=== PATIENT | female | born 1970 | race Caucasian/White ===

== ENCOUNTER 2022-11-19 17:48 | Emergency (ER) | payer OTHER ==
--- NOTE | 2022-11-19 19:10 | ER ---
Nurse's Notes [facility] Name: Tj Enriquez Age: 52 yrs Sex: Female : 1970 Arrival Date: 11/19/2022 Time: 17:48 Bed DX3 Private MD: Diagnosis: Pain in left ankle and joints of left foot;Sprain of tibiofibular ligament of left ankle;Sprain of unspecified ligament of left ankle;Sprain of calcaneofibular ligament of left ankle;Obesity, unspecified Presentation: 11/19 18:04 Chief complaint: EMS states: Rolled left ankle when attempting to get out of motorized hb scooter just DIE CUTTER, c/o left ankle pain 02/02. Coronavirus screen: At this time, the client does not indicate any symptoms associated with coronavirus-19. Ebola Screen: No symptoms or risks identified at this time. Initial Sepsis Screen: Does the patient meet any 2 criteria? No. Patient's initial sepsis screen is negative. Does the patient have a suspected source of infection? No. Patient's initial sepsis screen is negative. Risk Assessment: Do you want to hurt yourself or someone else? Patient reports no desire to harm self or others. Onset of symptoms was November 19, 2022. 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 - Social history:: Smoking status: Patient denies any tobacco usage or history of. Screenin:00 [facility] ED Fall Risk Assessment (Adult) History of falling in the last 3 months, pf1 including since admission No falls in past 3 months (0 pts) Confusion or Disorientation No (0 pts) Intoxicated or Sedated No (0 pts) Impaired Gait No (0 pts) Mobility Assist Device Used No (0 pt) Altered Elimination No (0 pt) Score/Fall Risk Level 0 - 2 = Low Risk Oriented to surroundings, Maintained a safe environment, Educated pt \T\ family on fall prevention, incl call for assistance when getting out of bed, Assessed \T\ reinforced patient's understanding of fall precautions, Provided non-skid footwear, Hourly rounding (assess needs \T\ fall precautionary measures) done, Used ambulatory aids as needed (educated on \T\ assisted with), Used gait belt as appropriate. 19:00 Abuse screen: Denies threats or abuse. Nutritional screening: No deficits noted. pf1 Tuberculosis screening: No symptoms or risk factors identified. Assessment: 19:00 General: Appears in no apparent distress. uncomfortable, obese, well groomed, well pf1 developed, Behavior is calm, cooperative, appropriate for age, quiet. 19:00 Pain: Complains of pain in left leg and left fu and left medial ankle and left pf1 lateral ankle and anterior aspect of left ankle Pain currently is 6 out of 10 on a pain scale. Neuro: No deficits noted. Level of Consciousness is awake, alert, obeys commands, Oriented to person, place, time, situation. Cardiovascular: No deficits noted. Respiratory: No deficits noted. Airway is patent Respiratory effort is even, unlabored, Respiratory pattern is regular, symmetrical. GI: No deficits noted. No signs and/or symptoms were reported involving the gastrointestinal system. : No deficits noted. No signs and/or symptoms were reported regarding the genitourinary system. EENT: No deficits noted. No signs and/or symptoms were reported regarding the EENT system. Derm: No deficits noted. No signs and/or symptoms reported regarding the dermatologic system. Musculoskeletal: Reports pain in anterior aspect of left ankle and left fu and left medial ankle and left lateral ankle and left leg Pain is 6 out of 10 on a pain scale. Vital Signs: 18:04 BP 158 / 88; Pulse 88; Resp 16; Temp 98; Pulse Ox 100% on R/A; Weight 117.93 kg; Height hb 5 ft. 4 in. ; Pain 8/10; 18:04 Body Mass Index 44.63 (117.93 kg, 162.56 cm) hb 18:04 Pain Scale: Adult hb Jake Coma Score: 18:17 Eye Response: spontaneous(4). Motor Response: obeys commands(6). Verbal Response: vicenta oriented(5). Total: 15. ED Course: 17:53 Patient arrived in ED. eb 17:53 Fernando Gudino MD is Attending Physician. [facility] 18:03 Melinda Powell, RN is Primary Nurse. hb 18:05 Triage completed. hb 18:10 Arm band placed on. hb 19:00 Patient has correct armband on for positive identification. pf1 19:00 No provider procedures requiring assistance completed. pf1 19:00 Patient did not have IV access during this emergency room visit. pf1 19:04 Tib Fib Left XRAY In Process Unspecified. EDMS 19:05 Ankle Left 3 View XRAY In Process Unspecified. EDMS 19:09 Sanjay Hartman MD is Referral Physician. [facility] 19:25 ortho boot. pf1 Administered Medications: 18:24 Not Given (Patient Refused): [place] PO 10 mg-325 mg 1 tabs PO once hb Medication: 19:00 VIS not applicable for this client. pf1 Outcome: 19:09 Discharge ordered by . [facility] 19:30 Discharged to home via wheelchair, with family. pf1 19:30 Condition: stable 19:30 Discharge instructions given to patient, Instructed on discharge instructions, follow up and referral plans. Demonstrated understanding of instructions, follow-up care. 19:30 Patient left the ED. pf1 Signatures: Dispatcher [employer] Fernando Mckeon MD MD cha Baxter, Heather, RN RN Bibiana Alexander Lidia Isidro, RN RN pf1 Corrections: (The following items were deleted from the chart) 11/20 03:57 11/19 19:42 Patient left the ED. pf1 pf1
--- NOTE | 2022-11-19 19:10 | EDPHYS ---
Physician Documentation [facility] Name: Tj Enriquez Age: 52 yrs Sex: Female : 1970 Arrival Date: 11/19/2022 Time: 17:48 Bed DX3 Private MD: ED Physician Fernando Gudino HPI: 11/19 18:12 This 52 yrs old Female presents to ER via EMS with complaints of Ankle Injury.vicenta 18:12 The patient presents with decreased range of motion, pain, that is acute. The vicenta complaints affect the left ankle, left lateral ankle, left medial ankle, left fu and anterior aspect of left ankle. Onset: The symptoms/episode began/occurred just prior to arrival. Context: resulted from the patient falling, a mis-step by the patient, The mechanism of injury involved inversion of the affected ankle. The patient can fully bear weight on the affected extremity. Associated signs and symptoms: The patient has no apparent associated signs or symptoms. Modifying factors: The symptoms are alleviated by nothing, the symptoms are aggravated by weight bearing, movement. Severity of symptoms: At their worst the symptoms were mild, moderate, in the emergency department the symptoms are unchanged. The patient has not experienced similar symptoms in the past. 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 - Social history:: Smoking status: Patient denies any tobacco usage or history of. ROS: 18:17 Constitutional: Negative for fever, chills, and weight loss, Eyes: Negative for injury, vicenta pain, redness, and discharge, ENT: Negative for injury, pain, and discharge, Neck: Negative for injury, pain, and swelling, Cardiovascular: Negative for chest pain, palpitations, and edema, Respiratory: Negative for shortness of breath, cough, wheezing, and pleuritic chest pain, Abdomen/GI: Negative for abdominal pain, nausea, vomiting, diarrhea, and constipation, Back: Negative for injury and pain, : Negative for injury, bleeding, discharge, and swelling, Skin: Negative for injury, rash, and discoloration, Neuro: Negative for headache, weakness, numbness, tingling, and seizure, Psych: Negative for depression, anxiety, suicide ideation, homicidal ideation, and hallucinations, Allergy/Immunology: Negative for hives, rash, and allergies, Endocrine: Negative for neck swelling, polydipsia, polyuria, polyphagia, and marked weight changes, Hematologic/Lymphatic: Negative for swollen nodes, abnormal bleeding, and unusual bruising. 18:17 MS/extremity: Positive for injury or acute deformity, decreased range of motion, pain, swelling, tenderness, of the left lateral ankle, left medial ankle and anterior aspect of left ankle. Exam: 18:17 Constitutional: This is a well developed, well nourished patient who is awake, alert, vicenta and in no acute distress. Head/Face: Normocephalic, atraumatic. Eyes: Pupils equal round and reactive to light, extra-ocular motions intact. Lids and lashes normal. Conjunctiva and sclera are non-icteric and not injected. Cornea within normal limits. Periorbital areas with no swelling, redness, or edema. ENT: Nares patent. No nasal discharge, no septal abnormalities noted. Tympanic membranes are normal and external auditory canals are clear. Oropharynx with no redness, swelling, or masses, exudates, or evidence of obstruction, uvula midline. Mucous membranes moist. Neck: Trachea midline, no thyromegaly or masses palpated, and no cervical lymphadenopathy. Supple, full range of motion without nuchal rigidity, or vertebral point tenderness. No Meningismus. Chest/axilla: Normal chest wall appearance and motion. Nontender with no deformity. No lesions are appreciated. Cardiovascular: Regular rate and rhythm with a normal S1 and S2. No gallops, murmurs, or rubs. Normal PMI, no JVD. No pulse deficits. Respiratory: Lungs have equal breath sounds bilaterally, clear to auscultation and percussion. No rales, rhonchi or wheezes noted. No increased work of breathing, no retractions or nasal flaring. Abdomen/GI: Soft, non-tender, with normal bowel sounds. No distension or tympany. No guarding or rebound. No evidence of tenderness throughout. Back: No spinal tenderness. No costovertebral tenderness. Full range of motion. Skin: Warm, dry with normal turgor. Normal color with no rashes, no lesions, and no evidence of cellulitis. Neuro: Awake and alert, GCS 15, oriented to person, place, time, and situation. Cranial nerves II-XII grossly intact. Motor strength 5/5 in all extremities. Sensory grossly intact. Cerebellar exam normal. Normal gait. Psych: Awake, alert, with orientation to person, place and time. Behavior, mood, and affect are within normal limits. 18:17 Musculoskeletal/extremity: Extremities: grossly normal except: decreased ROM, pain, swelling, tenderness, ROM: limited active range of motion due to pain, limited passive range of motion due to pain, in the left lateral ankle, left medial ankle and anterior aspect of left ankle, Circulation is intact in all extremities. Sensation intact. Compartment Syndrome exam of affected extremity: is normal. DVT Exam: negative Homans' sign noted on exam, no appreciated bluish discoloration, no erythema, no increased warmth, pain, swelling, tenderness. Vital Signs: 18:04 BP 158 / 88; Pulse 88; Resp 16; Temp 98; Pulse Ox 100% on R/A; Weight 117.93 kg; Height hb 5 ft. 4 in. ; Pain 8/10; 18:04 Body Mass Index 44.63 (117.93 kg, 162.56 cm) hb 18:04 Pain Scale: Adult hb Jake Coma Score: 18:17 Eye Response: spontaneous(4). Motor Response: obeys commands(6). Verbal Response: vicenta oriented(5). Total: 15. MDM: 17:53 Patient medically screened. vicenta 18:19 Differential diagnosis: fracture, sprain, arthritis, gout. Data reviewed: vital signs, vicenta nurses notes, radiologic studies, plain films. Consideration of Admission/Observation Escalation of care including admission/observation considered. I considered the following discharge prescriptions or medication management in the emergency department Medications were administered in the Emergency Department. See MAR. Test considered but Not performed: Labs: no labs. Care significantly affected by the following chronic conditions: Obesity, factor 5. Counseling: I had a detailed discussion with the patient and/or guardian regarding: the historical points, exam findings, and any diagnostic results supporting the discharge/admit diagnosis, radiology results, the need for outpatient follow up, a family practitioner, a orthopedic surgeon. 05/27 17:56 Order name: Tib Fib Left XRAY vicenta 11/19 17:56 Order name: Ankle Left 3 View XRAY [facility] 11/19 17:56 Order name: Ice pack; Complete Time: 18:24 vicenta 11/19 17:56 Order name: Walking boot; Complete Time: 03:55 vicenta Administered Medications: 18:24 Not Given (Patient Refused): [place] PO 10 mg-325 mg 1 tabs PO once hb Disposition Summary: 11/19/22 19:09 Discharge Ordered Location: Home vicenta Problem: new vicenta Symptoms: have improved vicenta Condition: Stable vicenta Diagnosis - Pain in left ankle and joints of left foot vicenta - Sprain of tibiofibular ligament of left ankle vicenta - Sprain of unspecified ligament of left ankle vicenta - Sprain of calcaneofibular ligament of left ankle vicenta - Obesity, unspecified vicenta Followup: vicenta - With: Private Physician - When: 2 - 3 days - Reason: Recheck today's complaints, Continuance of care, Re-evaluation by your physician Followup: vicenta - With: - When: 2 - 3 days - Reason: Recheck today's complaints, Re-evaluation by your physician Discharge Instructions: - Discharge Summary Sheet vicenta - Joint Pain vicenta - Arthritis vicenta - Musculoskeletal Pain vicenta - Obesity, Adult vicenta - Ankle Pain vicenta - Obesity, Adult, [id number] vicenta Forms: - Medication Reconciliation Form vicenta - Thank You Letter vicenta - Antibiotic Education vcienta - Prescription Opioid Use vicenta Signatures: Dispatcher [employer] EDFernando Mckeon MD MD cha Baxter, Heather RN RN Corrections: (The following items were deleted from the chart) 19:01 18:27 Knee Left 3 View+RAD.RAD.BRZ ordered. EDPR EDMS
[2022-11-19 19:46] VITALS: BP 158/88; TEMP 98; O2SAT 100
--- NOTE | 2022-11-19 20:13 | RAD REPORT ---
EXAM DESCRIPTION: RAD - Ankle Left 3 View - 11/19/2022 7:03 pm CLINICAL HISTORY: PAIN COMPARISON: Tib Fib Left dated 11/19/2022 TECHNIQUE: Left ankle, 3 views. FINDINGS: No fracture, dislocation or periosteal reaction. No joint effusion seen. Mild degenerative changes of the ankle and midfoot articulations. 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 Soft tissue swelling about the ankle most pronoun david laterally. IMPRESSION: No acute osseous abnormality. Soft tissue swelling and other findings as above.
--- NOTE | 2022-11-19 20:14 | RAD REPORT ---
EXAM DESCRIPTION: RAD - Tib Fib Left - 11/19/2022 7:03 pm CLINICAL HISTORY: PAIN COMPARISON: No comparisons TECHNIQUE: Left tibia and fibula, 2 views. FINDINGS: No fracture is identified. There is no dislocation or periosteal reaction noted. [id number] tricompartmental knee degenera tive changes. No foreign body or other soft tissue abnormality. IMPRESSION: No acute osseus abnormality. [id number] tricompartmental knee degenerative changes .
== END 2022-11-19 19:42 | disposition home or self-care (01) ==
LOC: ER 17:48
DX: S93.412A Sprain of calcaneofibular ligament of left ankle, initial encounter (principal); S93.432A Sprain of tibiofibular ligament of left ankle, initial encounter; E66.9 Obesity, unspecified
CPT/HCPCS: 99284